=== PATIENT | female | born 1995 | race Caucasian/White ===

== ENCOUNTER 2017-03-16 18:56 | Emergency (ER) | payer MEDICARE ==
[~2017-03-16] VITALS: Ht 167.6 cm; Wt 63.0 kg
[~2017-03-16 18:56] MED LIST: IBUPROFEN200 MG PO
[2017-03-16] MEDS ORDERED: HYDROCODONE/APAP 10MG-325MG TAB PO ONE (19:45)
[2017-03-16] MEDS ORDERED: DEXAMETHASONE SOD PHOS 10 MG/1 ML VIAL INJ ONE (20:30)
== END 2017-03-16 20:23 | disposition home or self-care (01) ==
LOC: ER 18:56
DX: B02.9 Zoster without complications (principal)
CPT/HCPCS: 99282; J1100